=== PATIENT | female | born 1960 | race Caucasian/White ===

== ENCOUNTER → 2023-09-29 | Outpatient (CLI) | payer OTHER ==
--- NOTE | 2023-09-29 15:14 | P.SLEEP ---
History of Present Illness DATE: 09/29/2023 CONSULTATION/NEW PATIENT EVALUATION HISTORY OF PRESENT ILLNESS/SLEEP-WAKE EVALUATION: 63-year-old lady had been evaluated in the sleep center for possible obstructive sleep apnea hypopnea syndrome. Patient has sleep study about 10 years ago in another institution, results was borderline, patient did not start on any treatment at that time. SLEEP SCHEDULE: Usually sleep schedule from 1112 until 710 AM 7 days a week. FALLING ASLEEP: Sometimes patient has difficulties with falling asleep. DURING SLEEP: Patient has very loud snoring, multiple awakenings from sleep up to 5 times with nocturia, dry mouth, panic attacks, palpitations, gasping for air and stop breathing during the sleep. Positive history of restless leg symptoms No history of hypnogogical hallucinations, sleep paralysis, or cataplexy. DURING THE DAY/WAKE STATE: In the morning patient wake up tired, has difficulties to pay attention, falling asleep during the day. Patient has problems concentration, irritability, depression and anxiety. [place] sleepiness scale is significantly increased to 15. Patient may take 1 nap during the day. PAST MEDICAL HISTORY: Headaches, acid reflux, bronchitis. PAST SURGICAL HISTORY: None. MEDICATIONS: Pramipexole 1.5 mg once a day, gabapentin 100 mg once a day, cetirizine 10 mg once a day. SOCIAL HISTORY: Positive for smoking for about 45 pack years, presently using vape, no alcohol consumption. FAMILY HISTORY: Hypertension, heart problems, stroke, epilepsy, cancer, diabetes . REVIEW OF SYSTEMS: Loud snoring, multiple awakenings from sleep, sleepiness during the day. No fevers. No double vision. No recent chest pain. No shortness of breath. No abdominal pain. No bleeding episodes. No blood in urine. No seizure episodes. PHYSICAL EXAMINATION: GENERAL: A pleasant patient without any distress. VITAL SIGNS: BP 122/77 , HR 91 , RR 12 , weight 172.8 pounds, height 5 foot 2.5 inches, body mass index 30.9 . HEENT: PERRCIERRA, EOMI. Evaluation of oropharynx showed tongue protrudes midline, low position of soft palate Mallampati 34. NECK: Supple. No JVD. Thyroid is not palpable. 15.5 inches in circumference. LUNGS: Clear to percussion and to auscultation. Good air exchange. No wheezing or rhonchi. HEART: S1, S2 regular. No murmurs, gallops or rubs. ABDOMEN: Soft and nontender. Bowel sounds are present. No organomegaly appreciated. EXTREMITIES: No clubbing or cyanosis. COUNSELOR/ART THERAPIST: Awake, alert, and oriented x3. Cranial nerves 2 to 7 intact. There is no fasciculation or atrophy noted. No focal deficits observed. ASSESSMENT: 1. Loud snoring, multiple awakenings from sleep, extremely low position of soft palate Mallampati 34, sleepiness with [place] Sleepiness Scale 15. Obstructive sleep apnea-hypopnea syndrome. 2. History of restless leg symptoms, possibly periodic limb movements. 3. History of sinuses problems. 4. History of bronchitis. 5 history of smoking for 45 pack years, patient continued to use vape.. 6 . Headaches. 7. Acid reflux. PLAN: 1. Polysomnography for evaluation of patient's breathing during sleep and to check for possible periodic limb movements. 2. Following plan after reading sleep study. 3. Preferable position during sleep on the side. 4. No driving if patient feels any sleepiness. Patient is aware of civil and criminal liability for unsafe driving. 5. Sleep hygiene with regular sleep time for at least 7.5-8 hours. 6. Watching and losing weight. Thank you very much for referring this patient for consultation. Sincerely, Curt Sandoval MD, PhD, FAASM. Diplomat of [employer], Sleep Medicine Board by [employer] Pool Manager of [facility] [place] Past Medical History Past Medical History: Chest Pain / Angina, GERD/Reflux Additional Past Medical History / Comment(s): Other HX: bronchitis, astigmatism, RLS, seasonal allergies History of Any Multi-Drug Resistant Organisms: None Reported Additional Past Surgical History / Comment(s): cosmetic, colonoscopy 2014- normal. Past Anesthesia/Blood Transfusion Reactions: No Reported Reaction Additional Past Anesthesia/Blood Transfusion Reaction / Comment(s): Pt has had no difficuties recieving anesthesia. Pt states she has never recieved blood. Past Psychological History: Anxiety Additional Psychological History / Comment(s): Pt lives by herself in her home. She is recently - summer 2013 and feels slightly anxious and depressed about that. Pt is independent. Past Alcohol Use History: None Reported Past Drug Use History: None Reported - Past Family History Father Family Medical History: Cancer, Osteoarthritis (OA) Additional Family Medical History / Comment(s): Fatehr is alive and is 72 yrs old. Father has prostate cancer. Mother Family Medical History: Hypertension, Osteoarthritis (OA) Additional Family Medical History / Comment(s): Mother is alive and is 72 yrs old. She is obese. Medications and Allergies Home Medications Medication Instructions Recorded Confirmed Type Cetirizine HCl 10 mg PO AC-SUPPER 09/13/14 05/02/16 History Pramipexole Di-HCl [Pramipexole 1.5 mg PO HS 09/13/14 05/02/16 History Dihydrochloride] Albuterol Inhaler [Ventolin Hfa 1 - 2 puff INHALATION RT-Q6H PRN 05/02/16 05/02/16 History Inhaler] Levofloxacin [Levaquin] 500 mg PO DAILY #5 tab 05/03/16 Rx Nicotine 21Mg/24Hr Patch [Habitrol] 1 patch TRANSDERM DAILY #30 patch 05/03/16 Rx Omeprazole 20 mg PO DAILY #30 cap 05/03/16 Rx Allergies Allergy/AdvReac Type Severity Reaction Status Date / Time cefaclor [From [facility]] Allergy Swelling Verified 05/02/16 08:23 Penicillins Allergy Rash/Hives Verified 05/02/16 08:23 Sleep Note - Sleep Note Sleep Note: Temperature: Pulse Rate: Respiratory Rate: Blood Pressure: SpO2: Height: Weight: BMI: Neck Circumference:
== END ==
LOC: 3 N SLEEP 14:26
PROVIDERS: ATTEND Internal Medicine
DX: G47.33 Obstructive sleep apnea (adult) (pediatric) (principal); G47.10 Hypersomnia, unspecified; G25.81 Restless legs syndrome; K21.9 Gastro-esophageal reflux disease without esophagitis; R51.9 Headache, unspecified; F17.290 Nicotine dependence, other tobacco product, uncomplicated; J40 Bronchitis, not specified as acute or chronic; Z86.69 Personal history of other diseases of the nervous system and sense organs; Z88.0 Allergy status to penicillin; Z88.8 Allergy status to other drugs, medicaments and biological substances; Z79.899 Other long term (current) drug therapy
CPT/HCPCS: 99202

== ENCOUNTER 2023-10-20 19:43 | Outpatient (CLI) | payer OTHER ==
--- NOTE | 2023-10-26 13:47 | P.PCN ---
Description of Procedure: POLYSOMNOGRAPHY REPORT PROCEDURE(S)/DATE(S): Polysomnography 10/20/2023 CLINICAL: Patient has been seen in the sleep center for evaluation of obstructive sleep apnea-hypopnea syndrome. Please see my consultation. Sleep study has been done for evaluation of patient breathing during the sleep. PROCEDURE: The standard montage for clinical polysomnography included the electroencephalogram, the electrooculogram, the mentalis surface electromyography and Lead II cardiography. The respiratory battery consisted of measurements of nasal/buccal air flow, pressure transducer measurements from nose, thoracic and/or abdominal effort and intercostal surface electromyography. Video monitoring has been done to check for any parasomnia events. Nocturnal oxyhemoglobin saturations were obtained by finger oximetry. Step-leung titration with positive airway pressure was utilized to control the respiratory events, if necessary. RESULTS: During the diagnostic sleep study sleep efficiency was significantly decreased to 63.0 %. Latency to sleep onset was prolonged to 38.0 min. Sleep architecture showed stage NI was borderline 8.9 %, Delta sleep was short 0.2 %, REM sleep was 412.2 %. Respiratory channel showed 0 obstructive apneas, 0 mixed apneas, 0 central apneas, 1 hypopneas with lowest oxygen level 86%. Oxygen was below normal for 1.7 minutes during the sleep test. Total apnea hypopnea index was 0.3. Heart rate was in the range between 75 and 84, average 79. EMG showed 0 periodic limb movements per hour with 0 micro-arousals per hour. IMPRESSIONS: 1. No significant respiratory abnormalities have been documented during the sleep study. 2. No significant periodic limb movements have been documented. 3. Significant excessive daytime sleepiness with [place] Sleepiness Scale 15. Please see other impressions from consultation PLAN: 1. Multiple sleep latency test for objective evaluation of symptoms of excessive daytime sleepiness for differential diagnosis with the narcolepsy and idiopathic hypersomnia. 2. No driving if feeling sleepiness.. 3. Sleep hygiene with regular time in bed for at least 7-1/2 hours. Thank you very much for allowing me to participate in the management of your patient. Sincerely, Curt Sandoval MD, PhD, FAASM. Diplomat of [place] [employer], Sleep Medicine Board by [place] [employer] Supervisor of [facility] [place]
== END 2023-10-21 04:55 | disposition home or self-care (01) ==
LOC: 3 N SLEEP 19:43
PROVIDERS: ATTEND Internal Medicine
DX: G47.10 Hypersomnia, unspecified (principal); F17.200 Nicotine dependence, unspecified, uncomplicated; Z88.0 Allergy status to penicillin; Z88.8 Allergy status to other drugs, medicaments and biological substances
CPT/HCPCS: 95810